=== PATIENT | female | born 1960 | race Caucasian/White ===

== ENCOUNTER 2017-10-17 07:38 | Day surgery (SDC) | payer OTHER ==
[2017-10-17] MEDS ORDERED: FAMOTIDINE 20 MG TAB PO ONE (07:42)
[2017-10-17] MEDS ORDERED: NS 1,000 ML IV ONE (07:42)
[2017-10-17] MEDS ORDERED: DIAZEPAM 5 MG TAB PO ONE (07:42)
[2017-10-17] MEDS ORDERED: diphenhydrAMINE 25 MG CAP PO ONE (07:42)
[2017-10-17] MEDS ORDERED: ASPIRIN EC 325 MG TAB PO ONE (07:42)
--- NOTE | 2017-10-17 07:58 | CPEKG ---
Heart Rate: 58 RR Interval: 1034 P-R Interval: 140 QRSD Interval: 78 QT Interval: 436 QTC Interval: 429 P [place]: 3 QRS [place]: 55 T Wave [place]: 76 EKG Severity - NORMAL ECG - EKG Impression: SINUS RHYTHM Electronically Signed By: Garrick Jacinto 18-Oct-2017 16:35:01
[2017-10-17 08:54] LABS: PLATELET COUNT 203 10^3/uL (150-400)
[2017-10-17 09:17] LABS: INR 1.01 (0.83-1.16); PROTIME(PATIENT) 13.5 SEC (12.0-15.0)
--- NOTE | 2017-10-17 09:47 | PDPROPOC ---
Sedation Plan of Care Sedation Plan of Care: vital signs stable, mental status noted, patient educated of risks, benefits, alternatives, patient can tolerate sedation ASA Classification: ASA 2 Planned drugs: fentanyl, midazolam Mallampati Score: Class 2 Mallampati Reference Image: Patient passed 3-3-2 rule?: Yes
--- NOTE | 2017-10-17 09:47 | PDHPUP ---
History & Physical Update H&P update statement: This history and physical update is based on an assessment of the patient which was completed after admission or registration (within 24 hours), but prior to the surgery/procedure. 57 Year old female with new onset of chest pain in the setting of abnormal ETT with [address] depression with exertion. H&P update: H&P reviewed & patient examined, changes noted (New onset Chest pain last week requiring evaluatoin in ER in [place]. )
[2017-10-17] MEDS ORDERED: fentaNYL 100 MCG/2 ML INJ ONE (09:48)
[2017-10-17] MEDS ORDERED: LIDOCAINE 1% 300 MG/30 ML SDV ONE (09:48)
[2017-10-17] MEDS ORDERED: MIDAZOLAM 2 MG/2 ML VIAL ONE (09:48)
[2017-10-17] MEDS ORDERED: IOPAMIDOL (ISOVUE-370) 150 ML BTL IV ONE (09:49)
[2017-10-17] MEDS ORDERED: OXYCODONE/APAP 5/325 TAB PO PRN (11:04)
[2017-10-17] MEDS ORDERED: NITROGLYCERIN 0.4 MG BTL SL PRN (11:04)
[2017-10-17] MEDS ORDERED: ATROPINE SULFATE 1 MG/10 ML SYR IVP PRN (11:04)
[2017-10-17] MEDS ORDERED: ONDANSETRON 4 MG/2 ML VIAL IVP PRN (11:04)
[2017-10-17] MEDS ORDERED: HYDROCODONE/APAP 5/325 TAB PO PRN (11:04)
[2017-10-17] MEDS ORDERED: ATROPINE SULFATE 1 MG/10 ML SYR ONE (11:07)
--- NOTE | 2017-10-17 11:38 | CPIP ---
[f rep st] INVASIVE CARDIAC PROCEDURE DATE OF PROCEDURE: 10/17/2017 PROCEDURES PERFORMED: 1. Diagnostic left heart catheterization. 2. Left coronary angiography. 3. Right coronary angiography. 4. Left ventriculogram. 5. Right common femoral artery angiography. INDICATION FOR PROCEDURE: New onset of symptoms consistent with unstable angina, coupled with abnorm al exercise treadmill stress test with [address]-segment depression, coupled with intermittent episodes of diaphoresis in the setting of coronary artery disease risk factors. DESCRIPTION OF PROCEDURE: After informed consent was obtained, the patient was brought to the [facility]ization lab where she was prepped and draped in sterile fashion. Using 1% lidocaine, the r ight groin was anesthetized. Using the modified Seldinger technique with micropuncture technique, th e right common femoral artery was cannulated with a 6-Beninese sheath without complication. A JL45 was used to take images of the left coronary anatomy in multiple projections. JL45 was exchanged over a guidewire for a JR4 catheter. JR4 catheter was used to cannulate the right coronary artery. Images of the right coronary anatomy were obtained in multiple projections. Right JR4 catheter was exchang ed over a guidewire for an angled pigtail catheter. Angled pigtail catheter was used to cross the ao rtic valve. Left ventriculogram was performed. LVEDP was assessed. Aortic valve gradient was asses sed on pull-back. Angled pigtail catheter was removed over a guidewire without complication. Imagin g of the right common femoral artery demonstrates cannulation of the right common femoral artery abov e the bifurcation and just below the inguinal ligament. FINDINGS: 1. Left main normal size and caliber bifurcates into left anterior descending and left coronary lissette ry. There is no evidence of coronary disease within the left main. 2. Left anterior descending demonstrates some mild luminal irregularities in a moderate-size first s eptal branch. There is a 20% mid LAD stenosis just distal to a moderate-size 1st diagonal branch. T he remainder of the LAD is free of disease. 3. Circumflex artery is dominant vessel. Some mild luminal irregularities within the circumflex wit h no evidence of flow-limiting coronary disease. 4. The right coronary artery is a small caliber, nondominant vessel. Right coronary artery is appro ximately a 2.5 mm vessel at the greatest diameter. There is no evidence of coronary disease within t he right coronary artery. HEMODYNAMICS: LVEF 65% to 70%. LVEDP 26 mmHg. No gradient across the aortic valve. PLAN: Medical management of mild nonobstructive coronary artery disease. The patient will be schedu led for outpatient followup with . /[id number]/MODL
== END 2017-10-17 17:51 | disposition home or self-care (01) ==
LOC: FCATH 07:38
PROVIDERS: ATTEND Internal Medicine Cardiovascular Disease
PROC: B2111ZZ Fluoroscopy of Multiple Coronary Arteries using Low Osmolar Contrast (ICD-10-PCS; principal; 2017-10-17)
PROC: 4A023N7 Measurement of Cardiac Sampling and Pressure, Left Heart, Percutaneous Approach (ICD-10-PCS; principal; 2017-10-17)
PROC: B2151ZZ Fluoroscopy of Left Heart using Low Osmolar Contrast (ICD-10-PCS; principal; 2017-10-17)
DX: R94.39 Abnormal result of other cardiovascular function study (principal); R07.9 Chest pain, unspecified; I25.10 Atherosclerotic heart disease of native coronary artery without angina pectoris; R00.2 Palpitations; I49.3 Ventricular premature depolarization; I10 Essential (primary) hypertension; Z79.82 Long term (current) use of aspirin; Z82.49 Family history of ischemic heart disease and other diseases of the circulatory system; Z78.0 Asymptomatic menopausal state
CPT/HCPCS: J0461; J1644; J2250; J3010; Q9967

== ENCOUNTER → 2018-07-17 | Outpatient (CLI) | payer OTHER | LOC: EMCIMAGING 09:05 | PROVIDERS: ATTEND Nurse Practitioner | DX: Z12.31 Encounter for screening mammogram for malignant neoplasm of breast (principal) | CPT/HCPCS: 77067-PN ==